=== PATIENT | female | born 1955 | race Caucasian/White ===

== ENCOUNTER 2021-08-17 17:08 | Emergency (ER) | payer MEDICAID ==
[2021-08-17] MEDS ORDERED: Albuterol/Ipratropium 3.0-0.5 MG/3 ML Neb Soln NEB ONE (17:39)
[2021-08-17] MEDS ORDERED: Ketorolac 30 MG/ML SDV IM ONE (17:39)
[2021-08-17] MEDS ORDERED: methylPREDNISolone Sodium Succinate 125 MG/2 ML SDV IVPUSH SCH (17:45)
[2021-08-17] MEDS ORDERED: Amoxicillin/Clavulanate K 875-125 MG Tab PO STA (17:51)
[2021-08-17] MEDS ORDERED: Take Home: predniSONE 20 MG, 2 Tab Pack PO ONE (17:51)
[2021-08-17] MEDS ORDERED: Take Home: Amoxicillin/Clavulanate K 875-125 MG Tab, 2 Tab Pack PO ONE (17:51)
[2021-08-17] MEDS ORDERED: Ketorolac 30 MG/ML SDV IVPUSH ONE (17:54)
[2021-08-17 18:14] VITALS: BP 147/90; PULSE 91
== END 2021-08-17 18:22 | disposition home or self-care (01) ==
LOC: CC.ED 17:08
DX: J44.1 Chronic obstructive pulmonary disease with (acute) exacerbation (principal); I10 Essential (primary) hypertension; Z79.899 Other long term (current) drug therapy; Z87.891 Personal history of nicotine dependence
CPT/HCPCS: 71046; 94640; 96374; 96375; 99285-25; A9270-GY; J1885; J2930; J7512; J7620-GY

== ENCOUNTER 2021-12-17 18:22 | Emergency (ER) | payer MEDICAID ==
[~2021-12-17 18:22] MED LIST: Albuterol/Ipratropium 3.0-0.5 MG/3 ML Neb Soln ONE; Ondansetron 4 MG/2 ML SDV IVPUSH PRN; Rocuronium 50 MG/5 ML Vial ONE; Succinylcholine 200 MG/10 ML MDV ONE; methylPREDNISolone Sodium Succinate 125 MG/2 ML SDV ONE
[2021-12-17] MEDS: Albuterol/Ipratropium 3.0-0.5 MG/3 ML Neb Soln NEB PRN ×4 (18:26→18:57)
[2021-12-17] MEDS ORDERED: Albuterol/Ipratropium 3.0-0.5 MG/3 ML Neb Soln NEB ONE (18:28)
[2021-12-17] MEDS ORDERED: Albuterol/Ipratropium 3.0-0.5 MG/3 ML Neb Soln ONE (18:31)
[2021-12-17] MEDS ORDERED: Azithromycin 500 MG Vial ONE (18:50)
[2021-12-17] MEDS ORDERED: cefTRIAXone 1 GM Vial ONE (18:51)
[2021-12-17] MEDS ORDERED: Sodium Chloride 0.9% 250 ML ONE (18:55)
[2021-12-17 19:06] LABS: O2 DELIVERY DEVICE NON REBR MASK
[2021-12-17] MEDS ORDERED: Ondansetron 4 MG/2 ML SDV ONE ×2 (19:08)
[2021-12-17 19:09] LABS: CHLORIDE,CL 101 mEq/L (98-106); SODIUM,NA 138 mEq/L (136-145)
[2021-12-17 19:10] LABS: BASE EXCESS ARTERIAL 6.4 (-2.0-3.0); BICARBONATE,ARTERIAL 34.3 mm/L (22.0-26.0); O2 SATURATION ARTERIAL 100 % (95-98); PCO2 ARTERIAL 86 mm/Hg0 (35-45); PO2 ARTERIAL 296 mm/Hg (80-100)
[2021-12-17] MEDS ORDERED: Sodium Chloride 0.9% 10 ML Syringe FLUSH PRN (19:25)
[2021-12-17 19:59] VITALS: BP 128/81; PULSE 109
[2021-12-17] MEDS ORDERED: cefTRIAXone 1 GM Vial IVPUSH ONE (20:00)
[2021-12-17] MEDS ORDERED: cefTRIAXone 1 GM Vial IVPUSH SCH (20:00)
[2021-12-17] MEDS ORDERED: cefTAZidime 1 GM Vial IVPUSH SCH (20:00)
[2021-12-17] MEDS ORDERED: methylPREDNISolone Sodium Succinate 125 MG/2 ML SDV IVPUSH STA (20:03)
[2021-12-17] MEDS ORDERED: Azithromycin 500 MG in Sodium Chloride 0.9% 250 ML IV STA (20:07)
== END 2021-12-17 20:53 ==
LOC: CC.ED 18:22
DX: J96.90 Respiratory failure, unspecified, unspecified whether with hypoxia or hypercapnia (principal); J44.1 Chronic obstructive pulmonary disease with (acute) exacerbation; I10 Essential (primary) hypertension; K21.9 Gastro-esophageal reflux disease without esophagitis; Z79.899 Other long term (current) drug therapy; Z20.822 Contact with and (suspected) exposure to COVID-19
CPT/HCPCS: 36415; 36600; 71045; 80053; 82803; 83605; 83880; 84484; 85025; 85610; 86140; 87040; 87804; 93005; 94640; 96365; 96375; 99284; 99284-25; J0330; J0456; J0696; J2405; J2930; J7050; J7620-GY; U0002

== ENCOUNTER → 2022-03-13 | Day surgery (SDC) | payer MEDICAID ==
[~2022-03-13] MED LIST changes: -Albuterol/Ipratropium 3.0-0.5 MG/3 ML Neb Soln ONE; +Flumazenil 0.1 MG/ML 10 ML MDV ONE; +Ketamine 200 MG/20 ML MDV ONE; +Lactated Ringers 1,000 ML IV SCH; +Lidocaine 2% 20 ML MDV ONE; +Midazolam 1 MG/ML 2 ML SDV ONE; -Ondansetron 4 MG/2 ML SDV IVPUSH PRN; +Propofol 200 MG/20 ML SDV ONE; -Rocuronium 50 MG/5 ML Vial ONE; -Succinylcholine 200 MG/10 ML MDV ONE; +fentaNYL 50 MCG/ML SDV ONE; -methylPREDNISolone Sodium Succinate 125 MG/2 ML SDV ONE
[2022-03-13 09:14] VITALS: BP 129/78; PULSE 109
== END ==
LOC: CC.SDS 06:59
PROVIDERS: ATTEND Surgery
DX: R19.5 Other fecal abnormalities (principal); D50.9 Iron deficiency anemia, unspecified; K21.9 Gastro-esophageal reflux disease without esophagitis; F41.9 Anxiety disorder, unspecified; F32.A Depression, unspecified; J44.9 Chronic obstructive pulmonary disease, unspecified; I10 Essential (primary) hypertension; E03.9 Hypothyroidism, unspecified; M81.0 Age-related osteoporosis without current pathological fracture; G47.00 Insomnia, unspecified; G47.30 Sleep apnea, unspecified; E78.00 Pure hypercholesterolemia, unspecified; R09.02 Hypoxemia; I48.91 Unspecified atrial fibrillation; E66.9 Obesity, unspecified; Z98.84 Bariatric surgery status; Z79.899 Other long term (current) drug therapy; Z79.82 Long term (current) use of aspirin; Z98.890 Other specified postprocedural states; Z87.891 Personal history of nicotine dependence; Z68.33 Body mass index [BMI] 33.0-33.9, adult
CPT/HCPCS: 82947; J2250; J2704; J3010; J7120

== ENCOUNTER 2022-12-31 21:17 | Emergency (ER) | payer MEDICARE, MEDICAID ==
[2022-12-31 21:22] VITALS: BP 160/85; PULSE 86
[2022-12-31 21:30] LABS: BASOPHILS ABSOLUTE AUTO 0.02 10^3/uL (0.00-0.50); BASOPHILS PERCENT AUTO 0.3 % (0-1); EOSINOPHILS PERCENT AUTO 1.7 % (0-6); HEMATOCRIT 49.5 % (37.0-47.0); HEMOGLOBIN 15.1 g/dL (12.0-16.0); IMMATURE GRAN ABSOLUTE AUTO 0.01 10^3/uL (0.00-0.49); IMMATURE GRAN PERCENT AUTO 0.2 % (0.0-4.9); LYMPHOCYTES ABSOLUTE AUTO 0.85 10^3/uL (0.60-5.00); LYMPHOCYTES PERCENT AUTO 14.4 % (24-44); MEAN CORPUSCULAR HEMOGLOBIN 30.2 pg (27.0-32.0); MEAN CORPUSCULAR HGB CONC 30.5 g/dL (32.0-36.0); MONOCYTES ABSOLUTE AUTO 0.47 10^3/uL (0.00-1.50); NEUTROPHILS ABSOLUTE AUTO 4.45 x10^3/uL (1.80-8.00); NEUTROPHILS PERCENT AUTO 75.4 % (41-71); PLATELET COUNT,PLT 219 10^3/uL (150-400); WHITE BLOOD CELL COUNT,WBC 5.9 10^3/uL (4.0-11.0)
[2022-12-31] MEDS: methylPREDNISolone Sodium Succinate 40 MG/1 ML SDV IVPUSH ONE (21:35)
[2022-12-31] MEDS: Albuterol/Ipratropium 3.0-0.5 MG/3 ML Neb Soln NEB ONE (21:35)
[2022-12-31] MEDS: Ketorolac 30 MG/ML SDV IVPUSH ONE (21:35)
[2022-12-31 21:43] LABS: ALANINE AMINOTRANSFERASE,ALT 21 U/L (12-78); ALBUMIN 3.1 g/dL (3.4-5.0); ALKALINE PHOSPHATASE 75 U/L (46-116); ASPARTATE AMNIOTRANSFERASE,AST 15 U/L (15-37); BILIRUBIN TOTAL 0.3 mg/dL (0.0-1.0); BLOOD UREA NITROGEN,BUN 14 mg/dL (7-18); CALCIUM 9.2 mg/dL (8.4-10.1); CARBON DIOXIDE,CO2 40 mmol/L (21-32); CHLORIDE,CL 100 mEq/L (98-106); CREATININE 0.9 mg/dL (0.6-1.0); EST CRCL DRUG DOSING (CG) 44.76 mL/min; GLUCOSE RANDOM 124 mg/dL (75-99); PROTEIN TOTAL,TP 7.2 g/dL (6.4-8.2); SODIUM,NA 141 mEq/L (136-145)
[2022-12-31 21:44] LABS: C-REACTIVE PROTEIN < 0.2 mg/dL (0.2-0.8); ESTIMATED GFR 71 mL/min (>=60)
[2022-12-31] MEDS: Take Home: Doxycycline 100 MG Cap, 4 Cap Pack PO ONE (22:13)
[2022-12-31] MEDS: Take Home: Acetaminophen/HYDROcodone 325-5 MG, 2 Tab Pack PO ONE (22:14)
== END 2022-12-31 22:52 | disposition home or self-care (01) ==
LOC: CC.ED 21:17
DX: J44.1 Chronic obstructive pulmonary disease with (acute) exacerbation (principal); I10 Essential (primary) hypertension; K21.9 Gastro-esophageal reflux disease without esophagitis; Z79.899 Other long term (current) drug therapy; Z20.822 Contact with and (suspected) exposure to COVID-19
CPT/HCPCS: 36415; 71046; 80053; 83735; 85025; 86140; 87804; 94640; 96374; 96375; 99285; A9270; J1885; J2920; U0002; J7620-GY

== ENCOUNTER 2023-02-14 11:32 | Emergency (ER) | payer MEDICARE, MEDICAID ==
[2023-02-14] MEDS: Acetaminophen 325 MG Tab PO ONE (11:56)
[2023-02-14] MEDS: Albuterol/Ipratropium 3.0-0.5 MG/3 ML Neb Soln NEB ONE (11:58)
[2023-02-14 12:12] LABS: BASOPHILS ABSOLUTE AUTO 0.03 10^3/uL (0.00-0.50); BASOPHILS PERCENT AUTO 0.4 % (0-1); EOSINOPHILS PERCENT AUTO 1.4 % (0-6); HEMATOCRIT 47.9 % (37.0-47.0); HEMOGLOBIN 14.7 g/dL (12.0-16.0); IMMATURE GRAN ABSOLUTE AUTO 0.02 10^3/uL (0.00-0.49); IMMATURE GRAN PERCENT AUTO 0.3 % (0.0-4.9); LYMPHOCYTES ABSOLUTE AUTO 1.17 10^3/uL (0.60-5.00); LYMPHOCYTES PERCENT AUTO 16.9 % (24-44); MEAN CORPUSCULAR HEMOGLOBIN 30.5 pg (27.0-32.0); MEAN CORPUSCULAR HGB CONC 30.7 g/dL (32.0-36.0); MEAN CORPUSCULAR VOLUME 99.4 fL (83.0-97.0); MONOCYTES ABSOLUTE AUTO 0.65 10^3/uL (0.00-1.50); MONOCYTES PERCENT AUTO 9.4 % (0-10); NEUTROPHILS ABSOLUTE AUTO 4.97 x10^3/uL (1.80-8.00); NEUTROPHILS PERCENT AUTO 71.6 % (41-71); PLATELET COUNT,PLT 190 10^3/uL (150-400); RED BLOOD CELL COUNT 4.82 x10^6/uL (4.00-5.50); WHITE BLOOD CELL COUNT,WBC 6.9 10^3/uL (4.0-11.0)
[2023-02-14 12:29] LABS: LACTIC ACID 0.8 mmol/L (0.4-2.0)
[2023-02-14] MEDS: Sodium Chloride 0.9% 500 ML IV SCH (12:31)
[2023-02-14 12:34] LABS: BILIRUBIN TOTAL 0.3 mg/dL (0.0-1.0); CALCIUM 9.1 mg/dL (8.4-10.1); CREATININE 0.8 mg/dL (0.6-1.0); EST CRCL DRUG DOSING (CG) 50.36 mL/min; MAGNESIUM 2.1 mg/dL (1.8-2.4); POTASSIUM,K 4.6 mEq/L (3.5-5.0)
[2023-02-14] MEDS: Dexamethasone 4 MG/ML SDV IVPUSH ONE (12:36)
[2023-02-14] MEDS: Dexamethasone 4 MG/ML SDV ONE (12:40)
[2023-02-14 12:45] LABS: O2 DELIVERY DEVICE NASAL CANNULA
[2023-02-14 12:46] LABS: BASE EXCESS ARTERIAL 10.7 (-2.0-3.0); BICARBONATE,ARTERIAL 37.1 mm/L (22.0-26.0); O2 SATURATION ARTERIAL 81 % (95-98); PCO2 ARTERIAL 74 mm/Hg0 (35-45); PH,ARTERIAL 7.31 (7.35-7.45); PO2 ARTERIAL 52 mm/Hg (80-100)
[2023-02-14 13:08] LABS: APPEARANCE,URINE SLIGHTLY CLOUDY (CLEAR); BILIRUBIN,URINE NEGATIVE (NEGATIVE); COLOR,URINE YELLOW (YELLOW); GLUCOSE,URINE NEGATIVE (NEGATIVE); KETONES,URINE NEGATIVE (NEGATIVE); LEUKOCYTE ESTERASE,URINE NEGATIVE (NEGATIVE); NITRITE,URINE NEGATIVE (NEGATIVE); OCCULT BLOOD,URINE NEGATIVE (NEGATIVE); PH,URINE 5.5 (4.5-8.0); PROTEIN,URINE 30 mg/dL (NEGATIVE); UROBILINOGEN,URINE 0.2 EU/dL (0.2-1.0)
[2023-02-14 13:16] LABS: BACTERIA,URINE OCCASIONAL /HPF (NOT SEEN); EPITHELIAL CELLS,URINE MODERATE /HPF (NOT SEEN); MUCUS,URINE MODERATE /HPF (NOT SEEN); RBC,URINE 0-5 /HPF (0-5); WBC,URINE 0-5 /HPF (0-5)
[2023-02-14] MEDS: Take Home: predniSONE 20 MG, 2 Tab Pack PO ONE (13:59)
[2023-02-14] MEDS: Iopamidol 755 Mg/ML 100 ML Bottle IVPUSH ONE (14:11)
[2023-02-14 16:17] VITALS: BP 143/79; PULSE 87
== END 2023-02-14 16:10 | disposition home or self-care (01) ==
LOC: CC.ED 11:32
DX: J44.1 Chronic obstructive pulmonary disease with (acute) exacerbation (principal); Z77.22 Contact with and (suspected) exposure to environmental tobacco smoke (acute) (chronic); I10 Essential (primary) hypertension; K21.9 Gastro-esophageal reflux disease without esophagitis; Z79.899 Other long term (current) drug therapy; Z20.822 Contact with and (suspected) exposure to COVID-19
CPT/HCPCS: 36415; 36600; 71275; 80053; 81001; 82803; 83605; 83735; 83880; 84484; 85025; 87040; 93005; 94640; A9270-GY; J1100; J7040; J7512; J7620-GY; Q9967; U0002

== ENCOUNTER 2025-05-01 23:00 | Observation (INO) | payer MEDICARE, MEDICAID ==
[2025-05-01] MEDS: methylPREDNISolone Sodium Succinate 125 MG/2 ML SDV IM SCH (23:30)
[2025-05-01 23:41] LABS: BASOPHILS ABSOLUTE AUTO 0.04 10^3/uL (0.00-0.50); BASOPHILS PERCENT AUTO 0.5 % (0-1); EOSINOPHILS ABSOLUTE AUTO 0.06 10^3/uL (0.00-1.50); EOSINOPHILS PERCENT AUTO 0.7 % (0-6); IMMATURE GRAN ABSOLUTE AUTO 0.03 10^3/uL (0.00-0.49); IMMATURE GRAN PERCENT AUTO 0.4 % (0.0-4.9); LYMPHOCYTES ABSOLUTE AUTO 1.22 10^3/uL (0.60-5.00); LYMPHOCYTES PERCENT AUTO 14.9 % (24-44); MONOCYTES ABSOLUTE AUTO 0.66 10^3/uL (0.00-1.50); MONOCYTES PERCENT AUTO 8.1 % (0-10); NEUTROPHILS ABSOLUTE AUTO 6.16 x10^3/uL (1.80-8.00); NEUTROPHILS PERCENT AUTO 75.4 % (41-71); PLATELET COUNT,PLT 219 10^3/uL (150-400); RED BLOOD CELL COUNT 3.93 x10^6/uL (4.00-5.50); WHITE BLOOD CELL COUNT,WBC 8.2 10^3/uL (4.0-11.0)
[2025-05-01 23:58] LABS: ALANINE AMINOTRANSFERASE,ALT 24 U/L (12-78); ASPARTATE AMNIOTRANSFERASE,AST 15 U/L (15-37); BILIRUBIN TOTAL 0.3 mg/dL (0.0-1.0); BLOOD UREA NITROGEN,BUN 59 mg/dL (7-18); CARBON DIOXIDE,CO2 37 mmol/L (21-32); CHLORIDE,CL 96 mEq/L (98-106); CREATININE 2.0 mg/dL (0.6-1.0); ESTIMATED GFR 27 mL/min (>=60); GLUCOSE RANDOM 121 mg/dL (75-99); POTASSIUM,K 5.9 mEq/L (3.5-5.0); PROTEIN TOTAL,TP 7.3 g/dL (6.4-8.2); SODIUM,NA 139 mEq/L (136-145)
[2025-05-02 00:07] LABS: INR 2.15 (0.92-1.18)
[2025-05-02] MEDS ORDERED: Ondansetron 4 MG Tab.DIS PO PRN (00:57)
[2025-05-02] MEDS ORDERED: Ondansetron 4 MG/2 ML SDV IV PRN (00:57)
[2025-05-02] MEDS: methylPREDNISolone Sodium Succinate 125 MG/2 ML SDV IVPUSH ONE (01:05)
[2025-05-02] MEDS ORDERED: Sennosides/Docusate Sodium 50-8.6 MG Tab PO SCH (02:00)
[2025-05-02] MEDS ORDERED: Sennosides/Docusate Sodium 50-8.6 MG Tab PO PRN (02:47)
[2025-05-02] MEDS: Arformoterol 15 MCG/2 ML Neb Soln INH SCH (07:26)
[2025-05-02] MEDS: Budesonide 0.5 MG/2 ML Neb Susp INH SCH (07:28)
[2025-05-02] MEDS: Cholecalciferol (Vitamin D3) 25 MCG Tab PO SCH (07:29)
[2025-05-02] MEDS: Calcium Carbonate/Vitamin D3 1250 MG-5 MCG Tab PO SCH (07:30)
[2025-05-02] MEDS: Lactobacillus Rhamnosus GG (Probiotic) Cap PO SCH (07:31)
[2025-05-02] MEDS: methylPREDNISolone Sodium Succinate 125 MG/2 ML SDV IVPUSH SCH (07:31)
[2025-05-02] MEDS ORDERED: Arformoterol 15 MCG/2 ML Neb Soln INH SCH (08:00)
[2025-05-02 08:25] LABS: BASOPHILS ABSOLUTE AUTO 0.01 10^3/uL (0.00-0.50); BASOPHILS PERCENT AUTO 0.2 % (0-1); EOSINOPHILS ABSOLUTE AUTO 0.00 10^3/uL (0.00-1.50); EOSINOPHILS PERCENT AUTO 0.0 % (0-6); IMMATURE GRAN ABSOLUTE AUTO 0.04 10^3/uL (0.00-0.49); IMMATURE GRAN PERCENT AUTO 0.6 % (0.0-4.9); LYMPHOCYTES ABSOLUTE AUTO 0.56 10^3/uL (0.60-5.00); LYMPHOCYTES PERCENT AUTO 9.1 % (24-44); MONOCYTES ABSOLUTE AUTO 0.06 10^3/uL (0.00-1.50); MONOCYTES PERCENT AUTO 1.0 % (0-10); NEUTROPHILS ABSOLUTE AUTO 5.50 x10^3/uL (1.80-8.00); NEUTROPHILS PERCENT AUTO 89.1 % (41-71); PLATELET COUNT,PLT 192 10^3/uL (150-400); RED BLOOD CELL COUNT 3.63 x10^6/uL (4.00-5.50); WHITE BLOOD CELL COUNT,WBC 6.2 10^3/uL (4.0-11.0)
[2025-05-02 08:34] LABS: INR 2.55 (0.92-1.18)
[2025-05-02 08:39] LABS: ALANINE AMINOTRANSFERASE,ALT 17.0 U/L (12-78); ASPARTATE AMNIOTRANSFERASE,AST 13.0 U/L (15-37); BILIRUBIN TOTAL 0.2 mg/dL (0.0-1.0); BLOOD UREA NITROGEN,BUN 48.0 mg/dL (7-18); CARBON DIOXIDE,CO2 32.0 mmol/L (21-32); CHLORIDE,CL 99.0 mEq/L (98-106); CREATININE 1.2 mg/dL (0.6-1.0); EST CRCL DRUG DOSING (CG) 39.28 mL/min; GLUCOSE RANDOM 165.0 mg/dL (75-99); POTASSIUM,K 5.6 mEq/L (3.5-5.0); PROTEIN TOTAL,TP 6.5 g/dL (6.4-8.2); SODIUM,NA 136.0 mEq/L (136-145)
[2025-05-02 08:41] LABS: ESTIMATED GFR 50.0 mL/min (>=60)
[2025-05-02] MEDS: Ferrous Sulfate 324 MG Tab.EC PO SCH (12:08)
[2025-05-03 07:09] VITALS: BP 100/61; PULSE 60
[2025-05-03 08:06] LABS: BASOPHILS ABSOLUTE AUTO 0.00 10^3/uL (0.00-0.50); BASOPHILS PERCENT AUTO 0.0 % (0-1); EOSINOPHILS ABSOLUTE AUTO 0.00 10^3/uL (0.00-1.50); EOSINOPHILS PERCENT AUTO 0.0 % (0-6); IMMATURE GRAN ABSOLUTE AUTO 0.03 10^3/uL (0.00-0.49); IMMATURE GRAN PERCENT AUTO 0.3 % (0.0-4.9); LYMPHOCYTES ABSOLUTE AUTO 0.74 10^3/uL (0.60-5.00); LYMPHOCYTES PERCENT AUTO 6.6 % (24-44); MONOCYTES ABSOLUTE AUTO 0.70 10^3/uL (0.00-1.50); MONOCYTES PERCENT AUTO 6.2 % (0-10); NEUTROPHILS ABSOLUTE AUTO 9.76 x10^3/uL (1.80-8.00); NEUTROPHILS PERCENT AUTO 86.9 % (41-71); PLATELET COUNT,PLT 205 10^3/uL (150-400); RED BLOOD CELL COUNT 3.29 x10^6/uL (4.00-5.50); WHITE BLOOD CELL COUNT,WBC 11.2 10^3/uL (4.0-11.0)
[2025-05-03 08:16] LABS: ALANINE AMINOTRANSFERASE,ALT 19.0 U/L (12-78); ASPARTATE AMNIOTRANSFERASE,AST 13.0 U/L (15-37); BILIRUBIN TOTAL 0.1 mg/dL (0.0-1.0); BLOOD UREA NITROGEN,BUN 43.0 mg/dL (7-18); CARBON DIOXIDE,CO2 36.0 mmol/L (21-32); CHLORIDE,CL 103.0 mEq/L (98-106); CREATININE 1.1 mg/dL (0.6-1.0); EST CRCL DRUG DOSING (CG) 42.85 mL/min; GLUCOSE RANDOM 136.0 mg/dL (75-99); POTASSIUM,K 5.8 mEq/L (3.5-5.0); PROTEIN TOTAL,TP 6.0 g/dL (6.4-8.2); SODIUM,NA 142.0 mEq/L (136-145)
[2025-05-03 08:18] LABS: ESTIMATED GFR 55.0 mL/min (>=60)
== END 2025-05-03 14:20 | disposition home or self-care (01) ==
LOC: CC.ED 23:00 → UNDOADMOB 05-02 → CC.MS 05-02
PROVIDERS: ADMIT Physician Assistant Medical; ATTEND Physician Assistant Medical
DX: J44.1 Chronic obstructive pulmonary disease with (acute) exacerbation (principal); N17.9 Acute kidney failure, unspecified; I12.9 Hypertensive chronic kidney disease with stage 1 through stage 4 chronic kidney disease, or unspecified chronic kidney disease; N18.9 Chronic kidney disease, unspecified; K21.9 Gastro-esophageal reflux disease without esophagitis; Z87.891 Personal history of nicotine dependence; Z79.899 Other long term (current) drug therapy; Z79.890 Hormone replacement therapy
CPT/HCPCS: 36415; 71045; 80053; 85025; 85610; 86140; 94640; 96361; 96372; 96374; 96375; 96376; 99223; 99239; 99285; A9270-GY; G0378; J0696; J2919; J3490; J7030